=== PATIENT | female | born 1955 | race Caucasian/White ===

== ENCOUNTER 2019-10-16 14:54 | Emergency (ER) | payer BC, OTHER ==
[~2019-10-16] VITALS: Ht 172.7 cm; Wt 72.6 kg
[2019-10-16 16:02] VITALS: BP_SYST 246
--- NOTE | 2019-10-16 16:10 | NUR ---
Patient triaged and placed in waiting room. VSS and patient appears in no acute distress at this time. Awaiting available bed, and MD notified of need for MSE.
[2019-10-16] MEDS ORDERED: cloNIDine HCL 0.1 MG TABLET PO ONE ×2 (16:15→17:15)
--- NOTE | 2019-10-16 17:06 | NUR ---
Patient to ER bed 4 to gown for evaluation. Side rails up. Report given to MONIQUE Willard.
--- NOTE | 2019-10-16 17:10 | NUR ---
Patient arrived in the ED c/o elevated BP readings for a week now. Patient denied any chest pain or shortness of breath. Denied any fevers, chills, nausea, or vomiting. Patient is alert and oriented x4, respirations even and unlabored, speaking in full sentences, ambulating with a steady gait. VSS, pain level 0/10. Informed of approximate wait time. Instructed to notify ED staff for any changes in condition or worsening of symptoms. Patient verbalized understanding.
--- NOTE | 2019-10-16 17:15 | NUR ---
ER Dr. Gomez at bedside examining patient.
--- NOTE | 2019-10-16 17:52 | NUR ---
Administered Clonidine PO as ordered by Dr. Gomez. Patient tolerated the medication well. See eMAR for details.
[2019-10-16] MEDS ORDERED: hydrALAZINE HCL 20 MG/ML VIAL IVP ONE (19:15)
--- NOTE | 2019-10-16 19:33 | NUR ---
Report given and care transferred to MONIQUE Perez.
--- NOTE | 2019-10-16 19:50 | NUR ---
Pt medicated per MD orders.
[2019-10-16 19:52] LABS: BASOPHILS % (AUTO) 0.4 % (0.0-2.0); HEMATOCRIT 39.4 % (36-48); HEMOGLOBIN 13.4 g/dL (12.0-16.0); LYMPHOCYTES # (AUTO) 1.8 K/uL (1.0-5.5); LYMPHOCYTES % (AUTO) 21.5 % (20.5-51.5); MEAN CORPUSCULAR HEMOGLOBIN 34 pg (27-31); MEAN CORPUSCULAR HGB CONC 34 % (32-36); MEAN CORPUSCULAR VOLUME 99 fL (79.0-98.0); MONOCYTES # (AUTO) 0.5 K/uL (0.0-1.0); MONOCYTES % (AUTO) 5.9 % (1.7-9.3); NEUTROPHILS % (AUTO) 72.2 % (40.0-70.0); PLATELET COUNT (AUTO) 239 K/uL (130-430); RED BLOOD CELL COUNT(AUTO) 3.98 MIL/uL (4.2-6.2); RED CELL DISTRIBUTION WIDTH 14.7 % (9.0-15.0); WHITE BLOOD COUNT (AUTO) 8.4 K/uL (4.8-10.8)
[2019-10-16 20:00] LABS: CALCIUM 9.5 mg/dL (8.4-11.0); CREATININE 1.13 mg/dL (0.55-1.30); POTASSIUM 4.2 mmol/L (3.5-5.1)
[2019-10-16 20:06] LABS: ALBUMIN 4.1 g/dL (3.4-4.8); TOTAL BILIRUBIN 0.3 mg/dL (0.0-1.0)
--- NOTE | 2019-10-16 20:44 | NUR ---
Pt blood pressure 153/88. Instructed to discharge pt.
[2019-10-16 20:50] VITALS: BP_SYST 153
--- NOTE | 2019-10-16 20:50 | NUR ---
Patient given written and verbal discharge instructions and verbalizes understanding. ER MD Gomez discussed with patient the results and treatment provided. Patient in stable condition. ID arm band removed. IV catheter removed intact and dressing applied, no active bleeding. Rx of hydrochlorothiazide, Procardia, and Diovan given. Patient educated on pain management and to follow up with PMD. Pain Scale 0/10. Opportunity for questions provided and answered. Medication side effect fact sheet provided.
== END 2019-10-16 20:50 | disposition home or self-care (01) ==
LOC: SED 14:54
DX: I10 Essential (primary) hypertension (principal); E03.9 Hypothyroidism, unspecified; Z88.0 Allergy status to penicillin; Z90.710 Acquired absence of both cervix and uterus
CPT/HCPCS: 36415; 80053; 82550; 83880; 84484; 85025; 93005; 96374; 99284; J0360